=== PATIENT | male | born 1955 | race African-American/Black ===

== ENCOUNTER → 2024-07-15 | Outpatient (CLI) | payer OTHER ==
[~2024-07-15] VITALS: Ht 175.3 cm; Wt 72.6 kg
[~2024-07-15] MED LIST: FENTANYL 25 MCG TD; LR 1,000 ML IV SCH; NATURAL IRON65 MG; PERC2.5TAB PO; ZYRTEC 10MG10 MG PO; fentaNYL 50 MCG/ML 2 ML VIAL ONE
[2024-07-15 08:37] VITALS: BP 130/84; PULSE 67; TEMP 98.1
--- NOTE | 2024-07-15 09:07 | NUR ---
[address], [place], [id number] PATIENT PREFERS FOR THINGS TO BE SENT TO HIS PO BOX.
[2024-07-15 10:12] VITALS: BP 90/52; PULSE 62
[2024-07-15 10:27] VITALS: BP 111/75; PULSE 73
[2024-07-15 10:45] VITALS: BP 129/79; PULSE 78
--- NOTE | 2024-07-15 10:58 | NUR ---
PATIENT COMPLETED HIS MRI SEDATION RECOVERY PERIOD WITHOUT ANY ISSUES. PATIENT IS AWAKE AND ALERT AND ORIENTED. PATIENT HAS ALL OF HIS BELONGINGS AND PAPERWORK. ESCORTED PATIENT TO PATIENT ENTRANCE IN WHEELCHAIR. PATIENT ABLE TO GET INTO FRONT PASSENGER SEAT WITHOUT ANY ISSUES OR ASSISTANCE. ALL NEEDS MET.
== END ==
LOC: COL.RAD 08:10
DX: M47.816 Spondylosis without myelopathy or radiculopathy, lumbar region (principal); M48.061 Spinal stenosis, lumbar region without neurogenic claudication; M48.07 Spinal stenosis, lumbosacral region; M47.812 Spondylosis without myelopathy or radiculopathy, cervical region; M48.02 Spinal stenosis, cervical region
CPT/HCPCS: J2704; J3010; J7120